=== PATIENT | male | born 1965 | race Caucasian/White ===

== ENCOUNTER 2016-05-26 11:15 | Emergency (ER) | payer SELFPAY ==
--- NOTE | 2016-05-26 12:00 | ER Document Report ---
ED Medical Screen (RME) - General Stated Complaint: FEVER,COUGH Notes: Patient states he has had fever, cough, and congestion for about the last week and a half. Also has loss of voice. Denies nausea vomiting or diarrhea. States shortness of breath only with coughing. No chest pain. Does have a history of bronchitis. I have greeted and performed a rapid initial assessment of this patient. A comprehensive ED assessment and evaluation of the patient, analysis of test results and completion of the medical decision making process will be conducted by additional ED providers. TRAVEL OUTSIDE OF THE [place] IN LAST 30 DAYS: No - Related Data Allergies/Adverse Reactions: No Known Allergies Allergy (Unverified 12/08/14 13:42) Physical Exam - Vital signs Vitals: Temp Pulse Resp BP Pulse Ox 98.0 F 105 H 18 149/91 H 96 05/26/16 11:24 05/26/16 11:24 05/26/16 11:24 05/26/16 11:24 05/26/16 11:24 - Respiratory Notes: Mild expiratory wheezing noted on auscultation. No respiratory difficulty. Course - Vital Signs Vital signs: Temp Pulse Resp BP Pulse Ox 98.0 F 105 H 18 149/91 H 96 05/26/16 11:24 05/26/16 11:24 05/26/16 11:24 05/26/16 11:24 05/26/16 11:24
[2016-05-26] MEDS ORDERED: ALBUTEROL SULFATE 0.083% NEB 2.5 MG/3 ML AMPUL NEB ONE (12:03)
--- NOTE | 2016-05-26 12:58 | ER Document Report ---
HPI - HPI Patient complains to provider of: cough sore throat hoarse voice Onset: Last week - cough 11/2 weeks, sore throat, hoarse voice yesterday Pain Level: 3 - sore throat Context: Patient presents to the emergency department with complaints of cough for the past week and a half with yellow sputum. Patient also reports sore throat and hoarse voice started yesterday. Denies fever vomiting diarrhea. Patient does smoke. Denies history of asthma COPD patient. Associated Symptoms: Productive cough, Sore throat Exacerbated by: Denies Relieved by: Denies Similar symptoms previously: No Recently seen / treated by doctor: No - DERM Skin Color: Normal Past Medical History - General Information source: Patient - Social History Smoking Status: Current Every Day Smoker Cigarette use (# per day): Yes Chew tobacco use (# tins/day): No Frequency of alcohol use: Occasional Drug Abuse: None Occupation: furniture salesman Lives with: Family - father Family History: Reviewed & Not Pertinent Patient has suicidal ideation: No Patient has homicidal ideation: No - Medical History Medical History: Negative Renal/ Medical History: Denies: Hx Peritoneal Dialysis Surgical Hx: Negative Vertical Provider Document - CONSTITUTIONAL Agree With Documented VS: Yes Exam Limitations: No Limitations General Appearance: WD/WN, No Apparent Distress - INFECTION CONTROL TRAVEL OUTSIDE OF THE [place] IN LAST 30 DAYS: No - HEENT HEENT: Atraumatic, Normocephalic, Pharyngeal Erythema - No peritonsillar abscess good clear voice no trismus. negative: Conjuctival Injection, Pharyngeal Exudate, Pharyngeal Tenderness, Tympanic Membrane Red, Tympanic Membrane Bulging - NECK Neck: Normal Inspection, Supple. negative: Lymphadenopathy-Left, Lymphadenopathy-Right - RESPIRATORY Respiratory: No Respiratory Distress, Wheezing - slight wheeze anterior base O2 Sat by Pulse Oximetry: 96 - CARDIOVASCULAR Cardiovascular: Regular Rhythm - GI/ABDOMEN Gastrointestinal: Abdomen Soft, Abdomen Non-Tender - MUSCULOSKELETAL/EXTREMETIES Musculoskeletal/Extremeties: LUCERO VALLES - NEURO Level of Consciousness: Awake, Alert, Appropriate Motor/Sensory: No Motor Deficit - DERM Integumentary: Warm, Dry Course - Re-evaluation Re-evalutation: 05/26/16 13:08 Patient instructed on medications albuterol inhaler. Strep test done patient is not happy with waiting so I told him I would call him with results. Patient is nontoxic looking occasional cough during interview and assessment. Patient was instructed to return to the emergency department for any concerns trouble breathing. He verbalized understanding. 05/26/16 14:26 strep negative - Vital Signs Vital signs: Temp Pulse Resp BP Pulse Ox 98.0 F 105 H 18 149/91 H 96 05/26/16 11:24 05/26/16 11:24 05/26/16 11:24 05/26/16 11:24 05/26/16 11:24 - Diagnostic Test Radiology reviewed: Image reviewed, Reports reviewed - IMPRESSION: NO SIGNIFICANT RADIOGRAPHIC FINDING IN THE CHEST. Discharge - Discharge Clinical Impression: Sore throat, Upper respiratory infection with cough and congestion, Elevated blood pressure reading Condition: Stable Disposition: HOME, SELF-CARE Instructions: Acetaminophen, Upper Respiratory Illness ([facility]), Doxycycline ([facility]) , Bronchodilators ([facility]), Steroid Medication, Tessalon Perles ([facility]) Additional Instructions: *You have been evaluated for upper respiratory infection with cough, sore throat *Increase fluid intake *Take medication as prescribed *Use the inhaler as prescribed- 2 puffs every 4-6 hours *Quit smoking *Monitor your temperature, take Tylenol as indicated *Follow up with a primary care provider within one week *Return to ED for worsening condition, changes, needs, difficulty breathing, concerns Monitor your blood pressure. Your blood pressure was elevated today. This may be because you were anxious, in pain or because you need medication. It is important to follow up with your primary care provider for full evaluation. Prescriptions: Benzonatate [Tessalon Perles 100 mg Capsule] 100 mg PO ASDIR PRN #40 capsule PRN Reason: Doxycycline Monohydrate [Monodox] 100 mg PO BID #20 capsule Prednisone [Deltasone 10 mg Tablet] 10 mg PO ASDIR PRN #21 tablet PRN Reason: Forms: Elevated Blood Pressure, Smoking Cessation Education, Return to Work
[2016-05-26] MEDS ORDERED: ALBUTEROL SULFATE HFA (90 MCG/PUFF) 8 GM MDI (1 MDI/ER DISP) IH ONE (13:03)
[2016-05-26 13:25] VITALS: BP 151/94
== END 2016-05-26 13:22 | disposition home or self-care (01) ==
LOC: ER 11:15
DX: J06.9 Acute upper respiratory infection, unspecified (principal); J02.9 Acute pharyngitis, unspecified; R03.0 Elevated blood-pressure reading, without diagnosis of hypertension; R05 Cough; R49.0 Dysphonia; F17.210 Nicotine dependence, cigarettes, uncomplicated; R06.2 Wheezing
CPT/HCPCS: 99284; 87070; 87880; 71020; J3490